=== PATIENT | male | born 1985 | race Two or more races ===

== ENCOUNTER 2016-11-03 13:12 | Emergency (ER) | payer OTHER ==
[2016-11-03 13:21] VITALS: BMI 31.1
--- NOTE | 2016-11-03 14:00 | PDOC ---
History of Present Illness - General Chief Complaint: Chest Pain Stated Complaint: CHEST PAIN Time Seen by Provider: 11/03/16 13:46 History Source: Patient Exam Limitations: No Limitations - History of Present Illness Initial Comments: 11/03/16 14:05 30 yo M with no significant pmhx presents with 2h history of substernal chest pressure. He describes constant non-radiating substernal chest pressure. Made worse by palpation, movement and deep inspiration. He states he was walking when pressure started. He took 1gm of Aleve for pain with minimal relief of symptoms. No aleviating factors. No such pain in past. Denies family history of SCD or CAD. Denies fever, chills, diaphoresis, SOB, WARNER, abd.pain, N/V. Presenting Symptoms: Chest Pain Timing/Duration: reports: constant Severity/Quality: reports: moderate Chest Pain Radiation: reports: no radiation Activities at Onset: reports: exertion Prior Chest Pain/Cardiac Workup: reports: No prior chest pain, No prior cardiac workup Modifying Factors: improves with: palpation Nitro Today/Relief: Yes: no nitro taken today Aspirin Received prior to arrival (Core Measure): Yes: no aspirin today Past History - Travel Traveled outside of the country in the last 30 days: No Close contact w/someone who was outside of country & ill: No - Past Medical History Allergies/Adverse Reactions: Allergies Allergy/AdvReac Type Severity Reaction Status Date / Time No Known Allergies Allergy Verified 11/03/16 13:19 Home Medications: Ambulatory Orders Naproxen Sodium [Aleve] 220 mg PO PRN PRN 11/03/16 Other medical history: denies. - Psycho/Social/Smoking Cessation Hx Anxiety: No Suicidal Ideation: No Smoking History: Never smoked Hx Alcohol Use: No Drug/Substance Use Hx: No Substance Use Type: None Review of Systems - Review of Systems Cardiac (ROS): Yes: Chest Pain *Physical Exam - Vital Signs Last Vital Signs Temp Pulse Resp BP Pulse Ox 98.5 F 90 18 147/83 99 11/03/16 13:20 11/03/16 14:00 11/03/16 14:00 11/03/16 13:20 11/03/16 13:20 ED Treatment Course - LABORATORY CBC & Chemistry Diagram: 11/03/16 14:55 11/03/16 14:00 - ADDITIONAL ORDERS Additional order review: Laboratory Results 11/03/16 14:00 Sodium 139 Potassium 3.6 Chloride 103 Carbon Dioxide 26 Anion Gap 10 BUN 14 Creatinine 0.5 L Creat Clearance w eGFR > 60 Random Glucose 106 Calcium 8.9 Total Bilirubin 0.3 AST 16 ALT 31 Alkaline Phosphatase 203 H Creatine Kinase 74 Troponin I < 0.02 Total Protein 7.0 Albumin 3.6 11/03/16 14:55 RBC 5.22 MCV 79.3 L MCHC 34.0 RDW 12.8 MPV 8.1 Neutrophils % 44.9 Lymphocytes % 37.3 Monocytes % 10.4 H Eosinophils % 7.0 H Basophils % 0.4 - Medications Given in the ED: ED Medications Discontinued Medications Generic Name Dose Route Start Last Admin Trade Name Freq PRN Reason Stop Dose Admin Sodium Chloride 1,000 mls @ 1,000 mls/hr 11/03/16 14:02 11/03/16 14:54 Normal Saline - IV 11/03/16 15:01 1,000 mls/hr ASDIR STA Administration Oxycodone/Acetaminophen 1 combo 11/03/16 14:40 11/03/16 14:54 Percocet 5/325 - PO 11/03/16 14:41 1 combo ONCE ONE Administration Medical Decision Making - Medical Decision Making 11/03/16 14:43 A:30 yo M with no significant pmhx presents with 2h history of substernal chest pressure. Given history most likely costocondritis. Will r/o ACS. P: * CBC, CMP, and trops, * EKG and CXR 11/03/16 18:45 * 1st set of trop and CXR were negative. * pain has resolved with percocet. * Will send for second set of cardiac enzymes. * Discharge home if 2nd set on enzymes negative. * will repeat EKG as well. *DC/Admit/Observation/Transfer Diagnosis at time of Disposition: Acute costochondritis - Discharge Dispostion Disposition: HOME Condition at time of disposition: Stable - Patient Instructions Printed Discharge Instructions: DI for Atypical Chest Pain, DI for Costochondritis Additional Instructions: Your pain is most likely due to costochondritis. You can take ibuprofen for pain 600mg Q6H. Follow up with primary doctor in one week. Regular diet. Increase activity as tolerated. If pain worsens or you develop fever or chills please return to ED.
[2016-11-03] MEDS ORDERED: SODIUM CHLORIDE 1,000 ML IV STA (14:02)
[2016-11-03] MEDS ORDERED: OXYCODONE/APAP 5/325MG COMBO TABLET PO ONE (14:40)
[2016-11-03] MEDS ORDERED: OXYCODONE/APAP 5/325MG COMBO TABLET ONE (14:49)
[2016-11-03 15:44] LABS: ALBUMIN 3.6 g/dl (3.4-5.0); ALK PHOS 203 U/L (45-117); ANION GAP 10 (8-16); BILIRUBIN,TOTAL 0.3 mg/dL (0.2-1.0); CALCIUM 8.9 mg/dL (8.5-10.1); CO2 26 mmol/L (21-32); COCKROFT - GAULT 309.07; CREATININE 0.5 mg/dL (0.7-1.3); GLUCOSE,RANDOM 106 mg/dL (74-106); SGOT/AST 16 U/L (15-37); SGPT/ALT 31 U/L (12-78)
--- NOTE | 2016-11-03 15:45 | PDOC ---
Attending Attestation - Resident Resident Name: Jesus Corley - ED Attending Attestation I have performed the following: I have examined & evaluated the patient, The case was reviewed & discussed with the resident, I agree w/resident's findings & plan, Exceptions are as noted - HPI HPI: 11/03/16 15:42 Healthy 30-year-old male with no severe past medical history presents with very localized left parasternal chest pain today. Subjective shortness of breath, at baseline has unlimited exercise tolerance and walks daily. Denies smoking or drug use, denies PE risk factors, denies family history. - Physicial Exam PE: 11/03/16 15:42 Vital signs normal. Well-appearing. Exam is normal with very reproducible pinpoint discomfort in the left 5th/6th sternocostal junction. no bruise/swelling no edema/calf ttp - Medical Decision Making 11/03/16 15:45 Patient seen and evaluated with the resident. I agree with the overall evaluation, assessment, and management with the following summary of visit: Healthy 30-year-old male with no ACS or PE risk factors presents with atypical left chest pain. Low suspicion for ACS or PE, has early re-pole abnormality on EKG. Troponin 2 Chest x-ray is clear Dispo accordingly Heart Score/ECG Review - History History: Slightly suspicious - Electrocardiogram EKG: Non specific repolarization disturbance - Age Age: </= 45 - Risk Factors Based on the list above the patient has:: No risk factors known - Troponin Troponin: </= normal limit - Score Heart Score - Total: 1 #1 General ECG Interpretation: Sinus Rhythm, Normal Rate, Normal Intervals, No acute ischemic changes (early repol abnormality in the precordial leads, no reciprocal changes)
[2016-11-03 16:19] LABS: TROPONIN I < 0.02 ng/ml (0.00-0.05)
[2016-11-03 17:30] LABS: BASOPHIL 0.4 % (0-2.0); MCH 26.9 pg (25.7-33.7); MEAN CELL VOLUME 79.3 fl (80-96); MEAN PLT VOLUME 8.1 fl (7.5-11.1); NEUTROPHILS 44.9 % (42.8-82.8); PLATELET COUNT 289 K/MM3 (134-434); RDW 12.8 % (11.9-15.9); WHITE BLOOD COUNT 7.8 K/mm3 (4.0-10.0)
[2016-11-03 20:34] VITALS: BP 144/71; PULSE 66; TEMP 98.3
[2016-11-03 21:07] LABS: TROPONIN I < 0.02 ng/ml (0.00-0.05)
--- NOTE | 2016-11-03 21:09 | PDOC ---
*Physical Exam - Vital Signs Last Vital Signs Temp Pulse Resp BP Pulse Ox 98.3 F 66 18 144/71 100 11/03/16 20:33 11/03/16 20:33 11/03/16 20:33 11/03/16 20:33 11/03/16 20:33 ED Treatment Course - LABORATORY CBC & Chemistry Diagram: 11/03/16 14:55 11/03/16 14:00 - ADDITIONAL ORDERS Additional order review: Laboratory Results 11/03/16 14:00 Sodium 139 Potassium 3.6 Chloride 103 Carbon Dioxide 26 Anion Gap 10 BUN 14 Creatinine 0.5 L Creat Clearance w eGFR > 60 Random Glucose 106 Calcium 8.9 Total Bilirubin 0.3 AST 16 ALT 31 Alkaline Phosphatase 203 H Creatine Kinase 74 Troponin I < 0.02 Total Protein 7.0 Albumin 3.6 11/03/16 14:55 RBC 5.22 MCV 79.3 L MCHC 34.0 RDW 12.8 MPV 8.1 Neutrophils % 44.9 Lymphocytes % 37.3 Monocytes % 10.4 H Eosinophils % 7.0 H Basophils % 0.4 - Medications Given in the ED: ED Medications Discontinued Medications Generic Name Dose Route Start Last Admin Trade Name Freq PRN Reason Stop Dose Admin Sodium Chloride 1,000 mls @ 1,000 mls/hr 11/03/16 14:02 11/03/16 14:54 Normal Saline - IV 11/03/16 15:01 1,000 mls/hr ASDIR STA Administration Oxycodone/Acetaminophen 1 combo 11/03/16 14:40 11/03/16 14:54 Percocet 5/325 - PO 11/03/16 14:41 1 combo ONCE ONE Administration Medical Decision Making - Medical Decision Making 11/03/16 21:07 Sign-out received from outgoing Emergency Physician Dr. Vera Pt interviewed and examined Ancillary studies reviewed Case discussed in detail with oncoming Emergency Physician including history, physical exam and ancillary studies. Vital Signs Temp Pulse Resp BP Pulse Ox 98.3 F 66 18 144/71 100 11/03/16 20:33 11/03/16 20:33 11/03/16 20:33 11/03/16 20:33 11/03/16 20:33 11/03/16 21:11 CBC, BMP 11/03/16 14:55 11/03/16 14:00 CMP Sodium 139 mmol/L (136-145) 11/03/16 14:00 Potassium 3.6 mmol/L (3.5-5.1) 11/03/16 14:00 Chloride 103 mmol/L (98-107) 11/03/16 14:00 Carbon Dioxide 26 mmol/L (21-32) 11/03/16 14:00 Anion Gap 10 (8-16) 11/03/16 14:00 BUN 14 mg/dL (7-18) 11/03/16 14:00 Creatinine 0.5 mg/dL (0.7-1.3) L 11/03/16 14:00 Creat Clearance w eGFR > 60 (>60) 11/03/16 14:00 Random Glucose 106 mg/dL (74-106) 11/03/16 14:00 Calcium 8.9 mg/dL (8.5-10.1) 11/03/16 14:00 Total Bilirubin 0.3 mg/dL (0.2-1.0) 11/03/16 14:00 AST 16 U/L (15-37) 11/03/16 14:00 ALT 31 U/L (12-78) 11/03/16 14:00 Alkaline Phosphatase 203 U/L (45-117) H 11/03/16 14:00 Creatine Kinase 63 IU/L (39-308) 11/03/16 19:58 Troponin I < 0.02 ng/ml (0.00-0.05) 11/03/16 19:58 Total Protein 7.0 g/dl (6.4-8.2) 11/03/16 14:00 Albumin 3.6 g/dl (3.4-5.0) 11/03/16 14:00 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 Reports that he less heavy objects frequently. It 2 negative troponins. Again likely atypical chest pain. I advised patient that he should return to the ED if symptoms persist or returns. Patient is chest pain-free and like to go home. I discussed the physical exam findings, ancillary test results and final diagnoses with the patient. I answered all of the patient's questions. The patient was satisfied with the care received and felt comfortable with the discharge plan and treatment plan. The patient will call their primary care physician within 24 hours to arrange follow-up and will return to the Emergency Department with any new, persistant or worsening symptoms. *DC/Admit/Observation/Transfer Diagnosis at time of Disposition: Acute costochondritis - Discharge Dispostion Disposition: HOME Condition at time of disposition: Stable - Referrals - Patient Instructions Printed Discharge Instructions: DI for Atypical Chest Pain, DI for Costochondritis Additional Instructions: Your pain is most likely due to costochondritis. You can take ibuprofen for pain 600mg Q6H. Follow up with primary doctor in one week. Regular diet. Increase activity as tolerated. If pain worsens or you develop fever or chills please return to ED. - Post Discharge Activity
--- NOTE | 2016-11-04 17:31 | EKG ---
Test Reason : Blood Pressure : / mmHG Vent. Rate : 091 BPM Atrial Rate : 091 BPM P-R Int : 156 ms QRS Dur : 092 ms QT Int : 344 ms P-R-T Axes : 045 025 044 degrees QTc Int : 423 ms NORMAL SINUS RHYTHM SEPTAL INFARCT , AGE UNDETERMINED ABNORMAL ECG NO PREVIOUS ECGS AVAILABLE Confirmed by LONNIE STEPHENSON MD ([id number]) on 11/04/2016 5:31:12 PM Referred By: Confirmed By:LONNIE STEPHENSON MD
== END 2016-11-03 21:00 | disposition home or self-care (01) ==
LOC: JER 13:12
PROC: 3E0337Z Introduction of Electrolytic and Water Balance Substance into Peripheral Vein, Percutaneous Approach (ICD-10-PCS; principal; 2016-11-03)
DX: M94.0 Chondrocostal junction syndrome [Tietze] (principal)
CPT/HCPCS: 36415; 71020-TC; 80053; 82550; 84484; 85025; 93005; 93010; 96360; 99285-25